=== PATIENT | female | born 1955 | race Caucasian/White ===

== ENCOUNTER 2024-04-30 09:07 | Outpatient (CLI) | payer MEDICARE, MEDICAID, SELFPAY ==
--- NOTE | 2024-04-30 09:15 | CT_ITS ---
APPROVED REPORT Engineering Technical Writer: CLINICAL INDICATION Chest Pain TECHNIQUE Image Acquisition: A 128 slice MDCT scanner (Lumatixa View) was used for data acquisition. A noncontrast coronary calcium scan was performed. A CT attenuation threshold of 130 Hounsfield units (HU) was used for the detection of calcium in contiguous voxels of 1 sq mm in area to be counted as individual lesions. Bolus tracking in the ascending aorta with a threshold of 180 HU was performed. Immediately afterwards, ECG synchronized cardiac CT was then performed from the cardiac base to apex using retrospective gating with ECG tube current modulation. A total of 85 mL of Isovue 370 mg/mL contrast medium was administered at 5 mL/sec followed by a saline flush using a biphasic injection protocol. A tube voltage of 120 KVp was used. The patient received the following medications prior to the cardiac CT. 0.8 mg of sublingual nitroglycerin The average heart rate at the time of acquisition was 47 bpm and regular. Image Reconstruction Transaxial images were reconstructed at 0.67 mm slide thickness. Data was reviewed interactively on an advanced workstation capable of 2 and 3-dimensional displays in all conventional reconstruction formats, including multiplanar reformations, maximum intensity projections, curved multiplanar reformations, and volume rendered reconstructions. When applicable, selected routine images describing the relevant coronary anatomy and pathology were saved and sent to PACS. Complications None Technical Quality Overall image quality was suboptimal due to significant calcification. Coronary artery opacification was adequate. Total DLP (Dose-Length Product) is 1762.1 mGy-cm. The reported value represents the total of one or more individual components during the CT acquisition of this date and at this time, and as such, the same value may appear in more than one CT report depending on the interpreting/reporting physicians. COMPARISON None FINDINGS CT Coronary Calcium Scoring LMA (Left Main Artery) = 0 LAD (Left Anterior Descending) = 880 LCX (Left Coronary Circumflex) = 388 RCA (Right Coronary Artery) = 1102 Total Calcium Score = 2370 using the AJ-130 method. The observed calcium score of 2370 is at 99th percentile for subjects of the same age, sex, and race/ethnicity. The interpretation of the calcium heart score is based on the following continuum*: 0 = no calcified plaque detected (risk of coronary artery disease is very low ??? less than 5%) 1-10 = calcium detected in extremely minimal levels (risk of coronary diseases is still low ??? less than 10%) 11-100 = mild levels of plaque detected with certainty (mild or minimal narrowing of heart arteries is likely) 101-400 = definite,at least moderate levels of plaque detected (relatively high risk of a heart attack within 3-5 years) >401-999 = extensive levels of plaque detected (high risk of heart attack, high levels of vascular disease are present, high likelihood of at least one significant coronary narrowing) *The calcium heart score quantifies the burden of coronary calcification/plaque in the coronary arteries. The calcium heart score is not able to evaluate the presence or burden of non-calcified (i.e. soft) plaque. There is also calcification in the aortic valve, mitral annulus, and the ascending, transverse, and descending thoracic aorta. Coronary CT Angiography The coronary arterial system is right dominant. Quantitative Stenosis Grading: Left Main (LM): The left main originates normally from the left sinus of Valsalva. The LM trifurcates into the left anterior descending artery, ramus intermedius, and left circumflex artery. The LM is patent with no evidence of atherosclerosis. Left Anterior Descending (LAD) and Diagonal Branches: The LAD gives off 3 diagonal branch(es). There is mixed calcified/noncalcified plaque in the proximal and mid LAD segments, with up to 70-90% luminal stenosis. There is no evidence of LAD-myocardial bridge. Ramus-intermedius (RI): There is mixed calcified/noncalcified plaque in the ramus intermedius, with up to 50-70% luminal stenosis. Left Circumflex (LCX) and Obtuse Marginals (OM): The LCX gives off 1 Obtuse Marginal (OM) branch(es). There is mixed calcified/noncalcified plaque in the LCx, with up to 50-70% luminal stenosis. Right Coronary Artery (RCA): The RCA originates normally from the right sinus of Valsalva. The RCA gives off a posterior descending artery (PDA) and posterolateral (PL) branches. There is mixed calcified/noncalcified plaque along the RCA, with up to 70-90% luminal stenosis. Non-Coronary Cardiac Findings: Analysis of the left ventricular (LV) structure and function was performed after 3-D reconstruction of the LV from axial images, with user-corrected automatic contouring for assessment of LV volumes and user-defined reconstruction from oblique planes for measurement of 3-D cardiac structure and function. -The left ventricle systolic function is normal. -There is no left atrial appendage filling defect. Two right pulmonary veins and two left pulmonary veins drain normally into the left atrium. -No pericardial thickening or calcification. -Central and branch pulmonary arteries in the jauco-bw-izbg are unremarkable. -Thoracic aorta within the visualized thoracic aortic-branches in the [id number]-fh-qzmn is unremarkable. Extracardiac Structures No significant extra-cardiac findings. Note, however, that this study is focused on the cardiac findings. IMPRESSION -Suboptimal visualization of the luminal vessels in the setting of significant calcification. This may affect the diagnostic interpretation of the study findings. -Presence of coronary calcification with an Agatston score = 2370 using the AJ-130 method. -The observed calcium score of 2370 is at 99th percentile for subjects of the same age, sex, and race/ethnicity. -Severe multivessel atherosclerotic coronary disease, with high likelihood of significant flow-limiting atherosclerosis of the coronary arteries (as noted above). -CAD-RADS 4B. Management recommendations per ACC/AHA guidelines*, as clinically appropriate. *Recommendations: CAD RADS 0: Reassurance. Consider non-atherosclerotic causes of chest pain. CAD RADS 1: Consider non-atherosclerotic causes of chest pain. Consider preventive therapy and risk factor modification. CAD RADS 2: Consider non-atherosclerotic causes of chest pain. Consider preventive therapy and risk factor modification, particularly for patients with nonobstructive plaque in multiple segments. CAD RADS 3: Consider further functional testing. Consider symptom-guided anti-ischemic and preventive pharmacotherapy as well as risk factor modification per published guideline statements. CAD RADS 4A: Consider further functional testing or invasive coronary angiography with revascularization per published guideline statements. Consider symptom-guided anti-ischemic and preventive pharmacotherapy as well as risk factor modification per published guideline statements. CAD RADS 4B: Invasive coronary angiography recommended with revascularization per published guideline statements. Consider symptom-guided anti-ischemic and preventive pharmacotherapy as well as risk factor modification per published guideline statements. CAD RADS 5: Consider invasive angiography and/or viability assessment with revascularization per published guideline statements. Consider symptom-guided anti-ischemic and preventive pharmacotherapy as well as risk factor modification per published guideline statements. CRITICAL RESULT None COMMUNICATION Per this written report The coronary and cardiac findings of this CCTA were reviewed, reported, and signed by Xavier Lazo MD (Foil Cutter) Conclusion Electronically signed by : Parisa Lazo MD 04/30/2024 17:48:04
[2024-04-30 09:35] VITALS: BP 147/69; PULSE 52; RESP 18; TEMP 36.3; O2SAT 99; BMI 28.3
[2024-04-30 10:16] LABS: Chloride 102 mmol/L (98-107)
[2024-04-30 10:17] LABS: Potassium 4.7 mmoL/L (3.5-5.1); Sodium 133 mmol/L (136-145)
[2024-04-30 10:19] LABS: Blood Urea Nitrogen 23 mg/dl (7-17); Creatinine Clearance Estimated 47 mL/min (50-200); Estimated Glomerular Filt Rate 45 ml/min (>60); GFR (African American) 54 ML/MIN (>60)
[2024-04-30 10:20] LABS: Anion Gap 3.7 mEq/L (5-15); Carbon Dioxide 32 mmol/L (22.0-30.0); Glucose 97 mg/dl (74-100)
[2024-04-30 11:30] VITALS: BP 172/86; PULSE 55; O2SAT 99
[2024-04-30] MEDS: NITROGLYCERIN 0.4MG SL TABLET 0.8 MG SL (11:32)
[2024-04-30 11:33] VITALS: BP 155/81; PULSE 56; O2SAT 100
[2024-04-30 11:36] VITALS: BP 148/81; PULSE 57; O2SAT 99
[2024-04-30 11:39] VITALS: BP 134/83; PULSE 58; O2SAT 97
[2024-04-30] MEDS: IOPAMIDOL-370 (76%);100ML BOTTLE 85 ML IV (11:49)
[2024-04-30] MEDS: SODIUM CHLORIDE 0.9% 10ML SYR (RAD ONLY) 10 ML IV (11:49)
[2024-04-30] MEDS: 0.9 % SODIUM CHLORIDE 50 ML VIAL IV (11:49)
--- NOTE | 2024-04-30 13:23 | PC.NURSE ---
called Dr Alina Lacey @ [phone] regarding patient's GFR being 45; Dr. Lacey said to have the patient drink 500ml of water before the CT scan and instruct patient to drink 1 cup of water every hour for 8 hours today.
== END 2024-04-30 11:52 | disposition home or self-care (01) ==
PROVIDERS: PCP Emergency Medicine; Visit Provider Internal Medicine
DX: I51.9 Heart disease, unspecified (principal); R07.9 Chest pain, unspecified
CPT/HCPCS: 75574; 80048; Q9967

== ENCOUNTER 2024-09-13 11:36 | Emergency (ER) | payer MEDICARE, MEDICAID, SELFPAY ==
--- NOTE | 2024-09-13 11:46 | XR_ITS ---
PROCEDURE INFORMATION: Exam: XR Right Hip Exam date and time: 09/13/2024 11:44 AM Age: 68 years old Clinical indication: Hip pain; Right hip; Additional info: Worsening R hip pain 2 wk, no injury. TECHNIQUE: Imaging protocol: Radiologic exam of the right hip. Views: 2 or 3 views hip with pelvis when performed. COMPARISON: No relevant prior studies available. FINDINGS: Tubes, catheters and devices: Sacral nerve stimulator, with electronic device in the right gluteal region. Bones/joints: Mild osteoarthritis of the hips. Mild osteoarthritis of the sacroiliac joints and pubic symphysis. Degenerative change of the visualized spine. Soft tissues: Unremarkable. Vasculature: Atherosclerosis. IMPRESSION: 1. Mild osteoarthritis of the hips. 2. Mild osteoarthritis of the sacroiliac joints and pubic symphysis. 3. Degenerative change of the visualized spine.
--- OUTSIDE RECORDS SUMMARY | 2024-09-13 11:46 | XMS_ITS | Continuity of Care Document ---
Author Organization [facility] Phone Care Team Providers Care Blind Hanger Name Role Phone MARCOS WARD Primary Care XIANG CESAR Primary Attending XIANG CESAR Admitting ALLERGIES AND ADVERSE REACTIONS ALLERGIES AND ADVERSE REACTIONS Code System Allergy Substance Adverse Reaction Date Reaction (Severity) Comment Status Reported By Updated By No Known Allergies [id number] on January 09, 2023 5:17:22 PM [place] FAMILY HISTORY RELATION: Father Status: Cause of : Myocardial infarction Age at : 69 SNOMED-CT Diagnosis Age At Onset Information not available RELATION: Mother Status: Cause of : Cardiac arrhythmia Age at : 82 SNOMED-CT Diagnosis Age At Onset [id number] Permanent cardiac pacemaker [id number] Malignant tumor of colon RESULTS Patient: OSWALDO Llanos Date of : 1955 8 LABORATORY RESULTS ORDER 200: COMP METABOLIC PA VALERIY (LOINC: 51981-6) ORDER DATE: May 27, 2024 8:03:00 PM [place] Specimen Source: PLASMA Specimen Type: Plasma specim en PERFORMING LAB: [address] [id number] Result Comment: Final Result Date: May 27, 2024 9:31:00 PM UTC (TECH: ARR) LOINC TEST FLAG RESULT REFERENCE RANGE UPDA OTIS BY 2951-2 Sodium [Moles/volume ] in Serum or Plasma L 135 mmol/L 136 mmol/L - 145 mmol/L May 27, 2024 9:31:00 PM UTC (TECH: ARR) 2823-3 Potassium [Moles/volume] in Serum or Plasma N 4.6 mmol/L 3.6 mmol/L - 5.0 mmol/L May 27, 2024 9:31:00 PM UTC (TECH: ARR) 2075-0 Chloride [Moles/volu me] in Serum or Plasma N 98 mmol/L 98 mmol/L - 107 mmol/L May 27, 2024 9:31:00 PM UTC (TECH: ARR) 2027-9 Carbon dioxide, tota l [Moles/volume] in Serum or Plasma N 31.1 mmol/L 21.0 mmol/L - 32.0 mmol/L May 27, 2024 9:31:00 PM UTC (TECH: ARR) 66510-3 Anion gap in Blood N 10.5 J anuary 2024 9:31:00 PM UTC (TECH: ARR) 2345-7 Glucose [Mass/volume ] in Serum or Plasma N 105 mg/dl 70 mg/dl - 120 mg/dl May 27, 2024 9:31:00 PM UTC (TECH: ARR) 6299-2 Urea nitrogen [Mass/volume] in Blood H 27 mg/dL 7 mg/dL - 18 mg/dL May 27, 2024 9:31:00 PM UTC (TECH: ARR) 81116-3 Creatinine [Moles/volume] in Blood H 1.5 mg/dL 0.6 mg/dL - 1.3 mg/dL May 27, 2024 9:31:00 PM UTC (TECH: ARR) 56905-7 Glomerular filtratio n rate/1.73 sq M.predicted by Creatinine-based formula (MDRD) L 38 mlpermin 60 mlpermin May 27, 2024 9:31:00 PM UTC (TECH: ARR) 2885-2 Protein [Mass/volume ] in Serum or Plasma H 8.3 g/dl 6.4 g/dl - 8.2 g/dl May 27, 2024 9:31:00 PM UTC (TECH: ARR) 1751-7 Albumin [Mass/volume ] in Serum or Plasma N 4.1 g/dl 3.4 g/dl - 5.0 g/dl May 27, 2024 9:31:00 PM UTC (TECH: ARR) 2336-6 Globulin [Mass/volum e] in Serum N 4.2 May 27, 2024 9:31:00 PM UTC (TECH: ARR) 1759-0 Albumin/Globulin [Ma ss Ratio] in Serum or Plasma N 1.0 0.7 - 2 May 27, 2024 9:31:00 PM UTC (TECH: ARR) 25692-9 Calcium [Mass/volume ] in Serum or Plasma N 9.6 mg/dl 8.5 mg/dl - 10.5 mg/dl May 27, 2024 9:31:00 PM UTC (TECH: ARR) 1975-2 Bilirubin.total [Mass/volume] in Serum or Plasma N 0.40 mg/dL 0.10 mg/dL - 1.00 mg/dL May 27, 2024 9:31:00 PM UTC (TECH: ARR) 1920-8 Aspartate aminotransferase [Enzymatic activity/volume] in Serum or Plasma N 30 U/L 0 U/L - 37 U/L May 27, 2024 9:31:00 PM UTC (TECH: ARR) 1742-6 Alanine aminotransferase [Enzymatic activity/volume] in Serum or Plasma N 22 U/L 0 U/L - 65 U/L May 27, 2024 9:31:00 PM UTC (TECH: ARR) 6768-6 Alkaline phosphatase [Enzymatic activity/volume] in Serum or Plasma N 84 U/L 46 U/L - 116 U/L May 27, 2024 9:31:00 PM UTC (TECH: ARR) ORDER 300: IRON STUDY IRON/T IBC/ SAT (LOINC: 12382-2) ORDER DATE: May 27, 2024 8:03:00 PM UTC Specimen Source: SERUM Specimen Type: Serum specime n PERFORMING LAB: [address] [id number] Result Comment: Final Result Date: May 27, 2024 9:32:00 PM UTC (TECH: ARR) LOINC TEST FLAG RESULT REFERENCE RANGE UPDA OTIS BY 2498-4 Iron [Mass/volume] in Serum or Plasma N 82 mcg/ml 40 mcg/ml - 180 mcg/ml May 27, 2024 9:32:00 PM UTC (TECH: ARR) 2500-7 Iron binding capacity [Mass/volume] in Serum or Plasma N 363 mcg/dl 250 mcg/dl - 450 mcg/dl May 27, 2024 9:32:00 PM UTC (TECH: ARR) 2502-3 Iron saturation [Mass Fraction] in Serum or Plasma N 23 15 - 55 May 27, 2024 9:32:00 PM UTC (TECH: ARR) ORDER 400: CBC AUTO W DIFF ( LOINC: 82073-3) ORDER DATE: May 27, 2024 8:03:00 PM UTC Specimen Source: EDTA Specimen Type: Blood specime n with EDTA PERFORMING LAB: [address] [id number] Result Comment: Final Result Date: May 27, 2024 8:17:00 PM UTC (TECH: SHG) LOINC TEST FLAG RESULT REFERENCE RANGE UPDA OTIS BY 6690-2 Leukocytes [#/volume] in Blood by Automated count N 5.2 K/ul 4.0 K/ul - 10.5 K/ul May 27, 2024 8:17:00 PM UTC (TECH: SHG) 789-8 Erythrocytes [#/volume] in Blood by Automated count L 3.5 M/mm3 4.2 M/mm3 - 6.4 M/mm3 May 27, 2024 8:17:00 PM UTC (TECH: SHG) 718-7 Hemoglobin [Mass/volume] in Blood L 10.5 gm/dl 12.5 gm/dl - 16.0 gm/dl May 27, 2024 8:17:00 PM UTC (TECH: SHG) 76243-8 Hematocrit [Volume Fraction] of Blood L 33.2 % 37.0 % - 47.0 % May 27, 2024 8:17:00 PM UTC (TECH: SHG) 787-2 Erythrocyte mean corpuscular volume [Entitic volume] by Automated count N 95.7 fl 78 fl - 100 fl May 27, 2024 8:17:00 PM UTC (TECH: SHG) 785-6 Erythrocyte mean corpuscular hemoglobin [Entitic mass] by Automated count N 30.3 pg 27 pg - 31 pg May 27, 2024 8:17:00 PM UTC (TECH: SHG) 786-4 Erythrocyte mean corpuscular hemoglobin concentration [Mass/volume] by Automated count L 31.6 g/dl 32 g/dl - 36 g/dl May 27, 2024 8:17:00 PM UTC (TECH: SHG) 19789-4 Erythrocyte distribution width [Ratio] N 13.2 % 11.5 % - 14.0 % May 27, 2024 8:17:00 PM UTC (TECH: SHG) 777-3 Platelets [#/volume] in Blood by Automated count L 108 K/ul 150 K/ul - 450 K/ul May 27, 2024 8:17:00 PM UTC (TECH: SHG) 92247-7 Platelet mean volume [Entitic volume] in Blood by Automated count N 8.8 fl 6 fl - 9.5 fl May 27, 2024 8:17:00 PM UTC (TECH: SHG) 81773-6 Neutrophils/100 leukocytes in Blood N 61.5 % 43 % - 65 % May 27, 2024 8:17:00 PM UTC (TECH: SHG) 736-9 Lymphocytes/100 leukocytes in Blood by Automated count N 31.0 % 20.5 % - 45.5 % May 27, 2024 8:17:00 PM UTC (TECH: SHG) 5905-5 Monocytes/100 leukocytes in Blood by Automated count N 6.3 % 5.5 % - 11.7 % May 27, 2024 8:17:00 PM UTC (TECH: SHG) 713-8 Eosinophils/100 leukocytes in Blood by Automated count N 1.0 % 0.9 % - 2.9 % May 27, 2024 8:17:00 PM UTC (TECH: SHG) 706-2 Basophils/100 leukocytes in Blood by Automated count L 0.0 % 0.2 % - 1.0 % May 27, 2024 8:17:00 PM UTC (TECH: SHG) 12139-6 Immature granulocytes/100 leukocytes in Blood by Automated count N 0.2 % 0.0 % - 0.8 % May 27, 2024 8:17:00 PM UTC (TECH: SHG) 11878-2 Nucleated cells [#/volume] in Blood N 0.0 % May 27, 2024 8:17:00 PM UTC (TECH: SHG) 79510-1 Neutrophils [#/volume] in Blood N 3.2 K/uL 2.2 K/uL - 4.8 K/uL May 27, 2024 8:17:00 PM UTC (TECH: SHG) 731-0 Lymphocytes [#/volume] in Blood by Automated count N 1.6 CELL/MCL 1.3 CELL/MCL - 2.9 CELL/MCL May 27, 2024 8:17:00 PM UTC (TECH: SHG) 742-7 Monocytes [#/volume] in Blood by Automated count N 0.3 CELL/MCL 0.3 CELL/MCL - 0.8 CELL/MCL May 27, 2024 8:17:00 PM UTC (TECH: SHG) 711-2 Eosinophils [#/volume] in Blood by Automated count N 0.1 CELL/MCL 0 CELL/MCL - 0.2 CELL/MCL May 27, 2024 8:17:00 PM UTC (TECH: SHG) 704-7 Basophils [#/volume] in Blood by Automated count N 0.0 CELL/MCL 0.0 CELL/MCL - 1.0 CELL/MCL May 27, 2024 8:17:00 PM UTC (TECH: SHG) 90860-5 Immature granulocytes [#/volume] in Blood N 0.01 K/ul May 27, 2024 8:17:00 PM UTC (TECH: SHG) 15947-9 Nucleated cells [#/volume] in Blood N 0.00 K/uL May 27, 2024 8:17:00 PM UTC (TECH: SHG) 79248-0 Manual Differential panel - Blood N NO May 27, 2024 8:17:00 PM UTC (TECH: SHG) ORDER 500: FERRITIN (LOINC: 2276-4) ORDER DATE: May 27, 2024 8:03:00 PM UTC Specimen Source: PLASMA Specimen Type: Plasma specim en PERFORMING LAB: [address] [id number] Result Comment: Final Result Date: May 27, 2024 9:31:00 PM UT (TECH: ARR) LOINC TEST FLAG RESULT REFERENCE RANGE UPDA OTIS BY 2276-4 Ferritin [Mass/volume] in Serum or Plasma N 91 ng/ml 3 ng/ml - 244 ng/ml May 27, 2024 9:31:00 PM UT (TECH: ARR) ORDER 600: VITAMIN B12 AND F OLATE (LOINC: 2132-9) ORDER DATE: May 27, 2024 8:03:00 PM UTC Specimen Source: PLASMA Specimen Type: Plasma specim en [address]FORMING LAB: [address] [place] [id number] Result Comment: Final Result Date: May 27, 2024 9:59:00 PM UTC (TECH: ARR) LOINC TEST FLAG RESULT REFERENCE RANGE UPDA OTIS BY 2132-9 Cobalamin (Vitamin B12) [Mass/volume] in Serum or Plasma N 802 pg/mL 193 pg/mL - 986 pg/mL May 27, 2024 9:59:00 PM UTC (TECH: ARR) 2284-8 Folate [Mass/volume] in Serum or Plasma N 17.5 ng/mL 8.6 ng/mL - 58.9 ng/mL May 27, 2024 9:59:00 PM UTC (TECH: ARR) ORDER 700: METHYLMALONIC ACI D QUANT (LOINC: 75551-6) ORDER DATE: May 27, 2024 8:03:00 PM UTC Specimen Source: SERUM Specimen Type: Serum specime n PERFORMING LAB: [address] [id number] Result Comment: May 31, 2024 8:07:00 PM UTC Specimen Comment: Test(s) 710320-Ggrxbhjwzxpix Acid, Serum Result Comment: May 31, 2024 8:07:00 PM UTC Specimen Comment: was developed and its performance characte Result Comment: May 31, 2024 8:07:00 PM UTC ristics Result Comment: May 31, 2024 8:07:00 PM UTC Specimen Comment: determined by [facility]. It has not been ashley Result Comment: May 31, 2024 8:07:00 PM UTC ared or approved Result Comment: May 31, 2024 8:07:00 PM UTC Specimen Comment: by the Food and Drug Administration. Result Comment: May 31, 2024 8:07:00 PM UTC Result Comment: May 31, 2024 8:07:00 PM UTC Performed at: [facility] Result Comment: May 31, 2024 8:07:00 PM UTC [address] [place], [place] [id number] Result Comment: May 31, 2024 8:07:00 PM UTC Marine Underwriter: Gerry Beard MD, Phone: [phone] Result Comment: May 31, 2024 8:07:00 PM UTC Final Result Date: May 27, 2024 8:03:00 PM UTC (TECH: LAB) LOINC TEST FLAG [place]ULT [place] [address]-7 Methylmalonate [Moles/volume] in Serum or Plasma N 292 nmol/L 0-378 May 27, 2024 8:03:00 PM UTC (TECH: LAB) ORDER 800: THYROID STIMULATI NG HORMONE (LOINC: 3016-3) ORDER DATE: May 27, 2024 8:03:00 PM UTC Specimen Source: PLASMA Specimen Type: Plasma specim en PERFORMING LAB: [address] [id number] Result Comment: Final Result Date: May 27, 2024 9:31:00 PM UTC (TECH: ARR) LOINC TEST FLAG RESULT REFERENCE RANGE UPDA OTIS BY 3016-3 Thyrotropin [Units/volume] in Serum or Plasma H 7.45 mIU/L 0.36 mIU/L - 3.74 mIU/L May 27, 2024 9:31:00 PM UTC (TECH: ARR) ORDER 900: T4 FREE (LOINC: 3 024-7) ORDER DATE: May 27, 2024 8:03:00 PM UTC Specimen Source: PLASMA Specimen Type: Plasma specim en PERFORMING LAB: [address] [id number] Result Comment: Final Result Date: May 27, 2024 9:32:00 PM UTC (TECH: ARR) LOINC TEST FLAG RESULT REFERENCE R[place] 3024-7 Thyroxine (T4) free [Mass/volume] in Serum or Plasma N 0.99 ng/dl 0.76 ng/dl - 1.46 ng/dl May 27, 2024 9:32:00 PM UTC (TECH: ARR) ORDER 1000: ERYTHROPOIETIN Q UANT (LOINC: 08002-6) ORDER DATE: May 27, 2024 8:03:00 PM UTC Specimen Source: SERUM Specimen Type: Serum specime n PERFORMING LAB: [address] [id number] Result Comment: May 28, 2024 8:08:00 PM UTC [employer] DxI 800 Immunoassay System Result Comment: May 28, 2024 8:08:00 PM UTC . Result Comment: May 28, 2024 8:08:00 PM UTC Values obtained with different assay methods or kits Result Comment: May 28, 2024 8:08:00 PM UTC cannot be used interchangeably. Results cannot be Result Comment: May 28, 2024 8:08:00 PM UTC interpreted as absolute evidence of the presence or Result Comment: May 28, 2024 8:08:00 PM UTC absence of malignant disease. Result Comment: May 28, 2024 8:08:00 PM UTC Performed at: [facility] Result Comment: May 28, 2024 8:08:00 PM UTC [address] [place], [place] [id number] Result Comment: May 28, 2024 8:08:00 PM UTC Marine Underwriter: Jason Barragan PhD, Phone: [phone] Result Comment: May 28, 2024 8:08:00 PM UTC Final Result Date: May 28, 2024 8:03:00 PM UTC (TECH: LAB) LOINC TEST FLAG [place]ULT [place] [address]-8 Erythropoietin (EPO) [Units/volume] in Serum or Plasma H 43.9 mIU/mL 2.6-18.5 May 28, 2024 8:03:00 PM UTC (TECH: LAB) LABORATORY NARRATIVE RESULTS Information is not available RADIOLOGY RESULTS Information is not available PATHOLOGY NARRATIVE RESULTS Information is not available MICROBIOLOGY RESULTS No Micro Labs/Results Exist for Patient BLOOD ADMIN RESULTS Information is not available MEDICATIONS HOME MEDICATIONS Status RXNORM NDC Medication Dose Route Frequency Dates Comments Reported By Updated By Drug Treatment Unknown DISCHARGE MEDICATIONS Status RXNORM NDC Medication Dose Route Frequency Dates Comments Physician Updated By No Discharge Medication Info rmation Available INPATIENT MEDICATIONS Status RXNORM NDC Medication Dose Route Frequency Rat e Quantity Dates Comments Physician Updated By No Inpatient Medication Info rmation Available SOCIAL HISTORY SOCIAL HISTORY SNOMED-CT Social History Element Description Effective Dates Offered Cessation Comment UpdatedBy [id number] Historical Tobacco smoking status Former Smoker Smoked for 45 and quit for 2 years [id number] on July 20, 2021 6:05:53 PM [place] [id number] Historical Tobacco smoking status Never Smoked [id number] on October 31, 2019 3:47:13 AM [place] SOCIAL HISTORY - Gender Sex: Female SOCIAL HISTORY - Status : status i nformation is not available Intention in Next Year: intention information is not available SOCIAL HISTORY - Sexual Behavior Sexual Orientation Gender Identity SNOMED-CT Description SNO MED -CT Description Activity Level No of Partners Partner Type UpdatedBy Information is not available HEALTH CONCERNS Problems Concern Status Health Concern problem infor mation not available. Smoking Status Status Years Used Consumed packs p er day Health Concern smoking histo ry information not available. Family History Concern Status Health Concern family histor y information not available. ENCOUNTERS ENCOUNTER INFORMATION Reason for Visit Not Specified Admission May 27, 2024 7:30:[address] [id number] Discharge May 27, 2024 7:30:00 PM [facility] DISCHARGED TO HOME OR SELF CARE ENCOUNTER DIAGNOSES Notes information is not jr ilable. Code System Diagnosis Onset Date Diagnosis information is not available. 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
--- OUTSIDE RECORDS SUMMARY | 2024-09-13 11:46 | XMS_ITS ---
Author Organization Unknown Plan of Treatment Description Planned Activity Planned Timing - Telephone encounter - Patient Care team information Name Category Status Period Participants - - Proposed period not known -
[2024-09-13 11:47] VITALS: BP 155/67; PULSE 59; RESP 19; TEMP 36.5; O2SAT 97; BMI 27.9
--- NOTE | 2024-09-13 12:22 | ED_ITS ---
<Statement entered by Del Wallis DO - 09/15/24 14:36> I was consulted by the ORAL, and we discussed the complexity of the problem being addressed. I approve the treatment and management plan for this patient's care in the emergency department, thus performing a substantive portion of the medical decision making. Seen by ORAL only. Del Wallis DO Discharge Plan Disposition Patient Disposition: Home, Self-Care Condition: Good Prescriptions Prescriptions: New methylprednisolone [Medrol ([place])] 4 mg tablets,dose pack 4 mg PO DAILY Qty: 21 0RF Discontinued Rinvoq 15 mg Tablet Extended Release 24 Hr 15 mg PO DAILY No Action gabapentin 600 mg Tablet 600 mg PO TID trazodone 50 mg Tablet 50 mg PO HS PRN (Reason: sleep\) alprazolam 1 mg Tablet 1 mg PO BID PRN (Reason: Anxiety) atenolol 25 mg Tablet 25 mg PO DAILY potassium chloride 10 mEq Tablet Extended Release 10 meq PO DAILY nitroglycerin 0.6 mg Tablet, Sublingual 0.6 mg SUBLINGUAL Q5M PRN (Reason: Chest Pain) Rx Instructions: do not exceed 3 doses per episode aspirin 81 mg Tablet 81 mg PO DAILY furosemide 20 mg Tablet 20 mg PO DAILY cefdinir 300 mg Capsule 300 mg PO BID losartan 100 mg Tablet 100 mg PO DAILY duloxetine 30 mg Capsule,Delayed Release(Dr/Ec) 30 mg PO DAILY tizanidine 4 mg Capsule 4 mg PO HS PRN (Reason: .) roflumilast 500 mcg Tablet 500 mcg PO DAILY roflumilast 500 mcg Tablet 500 mcg PO DAILY levothyroxine 25 mcg Tablet 25 mcg PO DAILY pantoprazole 40 mg Tablet,Delayed Release (Dr/Ec) 40 mg PO DAILY Referrals Follow up/Referrals: Tom Deshpande MD [Primary Care Provider] - See instructions Activity Restrictions/Add. Instructions Additional Instructions/Restrictions: You have osteoarthritis of your hip and SI joint. Please follow up with your PCP. You have been started on steroids short term. Return to the ER if you have any redness, fever, swelling or increased pain Clinical Impressions Clinical Impression: Osteoarthritis Instructions Patient Instructions: DI for Arthritis Print Language Print Language: Faroese Discharge ED Provider: Del Wallis General Adult HPI General Chief complaint: PAIN Stated complaint: throbbing Pain from R hip to R knee Time Seen by Provider: 09/13/24 12:02 Mode of Arrival: Family Vehicle Source of Information: Patient and Medical Record Description of Symptoms (Recalled from ER Triage Doc. by RN): Pt c/o radiating R hip pain that began 2 wk ago and has been worsening since. Denies any fqall, injury, or trauma. Reports pain radiates down her R thigh anteriorly & latera lly. Pulses & [employer] are WNL to RLE. History of Present Illness HPI narrative: Patient presents with right sided hip pain radiating into her knee. She reports the pain feels deep and in her bone . She denies any injury. She is able to walk and has good range of motion. Denies any bowel or bladder incontinence or saddle anesthesias. She denies any history of chronic back pain. MD complaint: right hip pain Onset (ago): week(s) (2) Location: lower extremity Radiation: other (knee) Severity: moderate Consistency: constant Relieving factors: none Exacerbating factors: none Associated symptoms: negative fever/chills Related Data Home Medications ?Medication ?Instructions ?Recorded ?Confirmed alprazolam 1 mg tablet 1 mg PO BID PRN Anxiety 04/30/24 04/30/24 aspirin 81 mg tablet 81 mg PO DAILY 04/30/24 04/30/24 atenolol 25 mg tablet 25 mg PO DAILY 04/30/24 04/30/24 cefdinir 300 mg capsule 300 mg PO BID 04/30/24 04/30/24 duloxetine 30 mg capsule,delayed 30 mg PO DAILY 04/30/24 04/30/24 release furosemide 20 mg tablet 20 mg PO DAILY 04/30/24 04/30/24 gabapentin 600 mg tablet 600 mg PO TID 04/30/24 04/30/24 levothyroxine 25 mcg tablet 25 mcg PO DAILY 04/30/24 04/30/24 losartan 100 mg tablet 100 mg PO DAILY 04/30/24 04/30/24 nitroglycerin 0.6 mg sublingual 0.6 mg sublingual Q5M PRN Chest 04/30/24 04/30/24 tablet Pain pantoprazole 40 mg tablet,delayed 40 mg PO DAILY 04/30/24 04/30/24 release potassium chloride 10 mEq 10 meq PO DAILY 04/30/24 04/30/24 tablet,extended release roflumilast 500 mcg tablet 500 mcg PO DAILY 04/30/24 04/30/24 roflumilast 500 mcg tablet 500 mcg PO DAILY 04/30/24 04/30/24 tizanidine 4 mg capsule 4 mg PO HS PRN . 04/30/24 04/30/24 trazodone 50 mg tablet 50 mg PO HS PRN sleep\ 04/30/24 04/30/24 Previous Rx's ?Medication ?Instructions ?Recorded methylprednisolone 4 mg tablets in 4 mg PO DAILY #21 tabs 09/13/24 a dose pack (Medrol ([place]hett)) Allergies Allergy/AdvReac Type Severity Reaction Status Date / Time No Known Allergies Allergy Verified 04/30/24 10:40 [facility] Disclaimer: The information contained in this section may have been updated after the patient was seen, as this information can be updated by other users. Medical History (Updated 09/13/24 @ 12:36 by BONNIE Delgado) CHF (congestive heart failure) Arthritis Hypothyroid GERD (gastroesophageal reflux disease) Skin cancer, basal cell History of heart attack Hyperlipemia HTN (hypertension) Crohn disease Surgical History (Updated 04/30/24 @ 09:42 by Lili Johnson RN) History of bowel resection Family History (Updated 04/30/24 @ 09:37 by Lili Johnson RN) Sister Stroke Brother Stroke Social History (Updated 04/30/24 @ 09:43 by Lili Johnson RN) Smoking Status: Current every day smoker alcohol intake: never current occupational status: retired Travel in the last 8 weeks?: None Have you lived/traveled outside [place] in past 30 days?: No Contact w/someone who lives/traveled outside [place] past 30 days?: No Exposure to someone with infectious disease in past 14 days?: No Do you have a fever (greater than 100.4 F or 38 C)?: No Have you tested positive for COVID-19?: No Exposed to someone with COVID-19 in past 14 days?: No Do you have a sore throat?: No Do you have a cough?: No Do you have any weakness?: No Do you have any diarrhea?: No Are you experiencing any unusual bleeding?: No Do you have any muscle aches/pain?: Yes Do you have any abdominal pain?: No Are you experiencing loss of taste or smell?: No Other Medical History Have you received the Flu Vaccine for this season: No Have you received the Pneumonia Vaccine: No ROS Obtained: Yes Systems reviewed as appropriate & no additional complaints except as documented Physical Exam General General appearance: alert and in no apparent distress Head Head exam: atraumatic and normocephalic Eye Eye exam: Present normal appearance and EOMI Chest Chest inspection: Present symmetric chest wall rise Respiratory Respiratory exam: Present other (slight rhonchi improved with cough); Absent wheezes or stridor Cardiovascular Cardiovascular exam: Present regular rate and normal rhythm; Absent systolic murmur Extremities Exam Extremities exam: Present full ROM and other (right leg N/V intact, she has generalized tenderness in her thigh and below knee on initial palpation, not reproduced when palpated again) Neurological Exam Neurological exam: Present alert and oriented X3 Psychiatric Psychiatric exam: Present normal affect and normal mood Skin Skin exam: Present warm, dry and intact Medical Decision Making Medical Records Screening: Per USPSTF and CDC recommendations, given the prevalence of disease in our region, it is our hospital?s policy to screen for HIV and viral Hepatitis for all patients aged 18 and over and those with ongoing risk factors. Alfredo Inquiry Pt receiving controlled substance: No Vital Signs: 09/13/24 11:47 Temperature 97.7 F Temperature Source Oral Pulse Rate [Right] 59 L Respiratory Rate 19 Blood Pressure [Right Arm] 155/67 H Blood Pressure Mean [Right Arm] 96 Blood Pressure Source [Right Arm] Automatic Cuff 02 Sat by Pulse Oximetry 97 Oxygen Delivery Method Room Air Orders (Tests/Meds): ED MEDICATIONS Discontinued Medications Generic Name Dose Route Start Last Admin Trade Name Freq PRN Reason Stop Dose Admin Hydrocodone Bitart/Acetaminophen 1 tab 09/13/24 12:33 09/13/24 12:43 Hydrocodone/Apap 5/325 Mg Tablet PO 09/13/24 12:34 1 tab ONCE ONE Administration ORDERS Category Date Time Status XR hip RT 2-3V w/pelvis Stat Exams 09/13/24 11:46 Completed Medical Decision Narrative: In summary patient is a 68-year-old who presents the emergency department for evaluation of right hip pain radiating into the knee. Patient is hemodynamically stable upon arrival, afebrile. Generalized tenderness on exam. Differential diagnosis includes osteoarthritis, radicular pain, fracture . Initial workup will be conducted with plain film. Initial inventions include given [place] for pain. Initial workup reviewed by me x-ray remarkable for osteoarthritis. Given this patient started on Medrol and advised to follow-up with her PCP. She is agreeable to plan.. Critical Care Critical Care Time Critical Care Time: No
[2024-09-13 12:30] VITALS: BP 162/85; PULSE 62; RESP 17; TEMP 36.5; O2SAT 96
[2024-09-13] MEDS: HYDROCODONE/APAP 5/325 MG TABLET 1 TAB PO (12:43)
== END 2024-09-13 12:58 | disposition home or self-care (01) ==
PROVIDERS: Emergency Provider Student in an Organized Health Care Education/Training Program; PCP Family Medicine
DX: M16.11 Unilateral primary osteoarthritis, right hip (principal); M17.11 Unilateral primary osteoarthritis, right knee
CPT/HCPCS: 73502; 99283